=== PATIENT | male | born 1985 | race African-American/Black ===

== ENCOUNTER 2018-12-21 20:13 | Emergency (ER) | payer SELFPAY ==
[~2018-12-21] VITALS: Ht 177.8 cm; Wt 59.0 kg
[2018-12-21] MEDS ORDERED: SODIUM CHLORIDE 0.9% 1,000 ML IV ONE (20:39)
[2018-12-21] MEDS ORDERED: FAMOTIDINE 20MG/2ML VIAL IV STA (20:39)
[2018-12-21] MEDS ORDERED: ONDANSETRON HCL 4MG/2ML INJ IV STA (20:39)
[2018-12-21] MEDS ORDERED: MORPHINE SULFATE 4 MG/ML CPJ (NOT FOR IM USE) IV ONE (21:15)
[2018-12-21 21:28] LABS: HEMATOCRIT. 45.8 % (42.0-52.0); HEMOGLOBIN. 15.4 g/dL (14.0-18.0); MEAN CORPUSCULAR HEMOGLOBIN 31.3 pg (28.0-32.0); MEAN CORPUSCULAR VOLUME 93.4 fL (80.0-94.0); MEAN PLATELET VOLUME 7.5 fl (7.4-10.4); PLATELET 197 x1000/uL (130-400); RED BLOOD CELL COUNT 4.91 mill/uL (4.7-6.1); RED CELL DISTRIBUTION WIDTH 14.4 % (11.6-14.6)
[2018-12-21 21:32] LABS: CHLORIDE 105 mEq/L (98-107)
[2018-12-21 21:33] LABS: INR 1.1; PROTHROMBIN TIME 11.4 sec (9.6-11.0)
[2018-12-21 21:36] LABS: ETHANOL BLOOD < 10 mg/dL
[2018-12-21] MEDS ORDERED: POTASSIUM CHLORIDE 20MEQ TABLET SR PO ONE (22:00)
[2018-12-21 22:10] LABS: PLATELET ESTIMATE NORMAL
[2018-12-21 23:43] VITALS: BP 120/52
== END 2018-12-21 23:46 | disposition home or self-care (01) ==
LOC: ER 20:43
DX: R10.13 Epigastric pain (principal); R11.2 Nausea with vomiting, unspecified; R19.7 Diarrhea, unspecified; F12.10 Cannabis abuse, uncomplicated; F17.200 Nicotine dependence, unspecified, uncomplicated
CPT/HCPCS: 36415; 74176; 80053; 80320; 83690; 85025; 85610; 96361; 96374; 96375; 99284; J2270; J2405; J3490; J7030; G0480